=== PATIENT | male | born 1960 | race Two or more races ===

== ENCOUNTER 2018-04-15 06:20 | Day surgery (SDC) | payer OTHER ==
[2018-04-15] MEDS ORDERED: EPHEDrine SULFATE 50 MG/5 ML SYG (07:00)
[2018-04-15] MEDS ORDERED: CEFAZOLIN 2 GM/50 ML (PMX) 50 ML IVPB (08:00)
[2018-04-15] MEDS ORDERED: BUPIVACAINE 0.25% (MPF) 30 ML INJ (08:21)
[2018-04-15] MEDS ORDERED: CEFAZOLIN 1 GM INJ (08:41)
[2018-04-15] MEDS ORDERED: FENTAnyl 50 MCG/ML VIAL (08:41)
[2018-04-15] MEDS ORDERED: PROPOFOL 20 ML (08:41)
[2018-04-15] MEDS ORDERED: MIDAZOLAM 1 MG/ML 2 ML INJ (08:41)
[2018-04-15] MEDS ORDERED: ROPIVACAINE 0.5 % 30 ML VIAL (08:41)
[2018-04-15] MEDS ORDERED: ONDANSETRON 4 MG INJ (08:51)
[2018-04-15] MEDS ORDERED: METOCLOPRAMIDE 10 MG INJ (08:51)
[2018-04-15] MEDS ORDERED: KETOROLAC 30 MG INJ (08:52)
[2018-04-15] MEDS ORDERED: DEXAMETHASONE 4 MG/ML 1 ML INJ (08:52)
[2018-04-15] MEDS ORDERED: hydrALAzine 20 MG INJ IV (09:00)
[2018-04-15] MEDS ORDERED: LABETALOL HCL 20MG INJ IV (09:00)
[2018-04-15] MEDS ORDERED: DIPHENHYDRAMINE 50 MG INJ IV (09:00)
[2018-04-15] MEDS ORDERED: ONDANSETRON 4 MG INJ IV (09:00)
[2018-04-15] MEDS ORDERED: MEPERIDINE 25 MG INJ IV (09:00)
[2018-04-15] MEDS ORDERED: FENTAnyl 50 MCG/ML VIAL IV ×2 (09:00)
[2018-04-15] MEDS ORDERED: HYDROmorphONE 1 MG/5 ML IV SYRINGE IV ×2 (09:00)
[2018-04-15] MEDS ORDERED: METOCLOPRAMIDE 10 MG INJ IV (09:00)
[2018-04-15] MEDS ORDERED: OXYCODONE/ACETAMINOPHEN (5/325) TAB PO (09:00)
[2018-04-15] MEDS ORDERED: EPHEDrine SULFATE 50 MG/5 ML SYG IV (09:00)
[2018-04-15] MEDS ORDERED: NEOSTIGMINE 3 MG/3 ML SYRINGE (09:12)
[2018-04-15] MEDS ORDERED: GLYCOPYRROLATE 0.4 MG INJ (09:12)
[2018-04-15] MEDS: SOD CHLORIDE 0.9% 1,000 ML IV (09:30)
[2018-04-15] MEDS ORDERED: HYDROCODONE/APAP (5/325) TAB PO (09:30)
[2018-04-15] MEDS ORDERED: ROCURONIUM 50 MG INJ (10:23)
== END 2018-04-15 11:10 | disposition home or self-care (01) ==
LOC: SDS 06:20
DX: K40.30 Unilateral inguinal hernia, with obstruction, without gangrene, not specified as recurrent (principal); E11.9 Type 2 diabetes mellitus without complications; I10 Essential (primary) hypertension; I25.10 Atherosclerotic heart disease of native coronary artery without angina pectoris; E78.5 Hyperlipidemia, unspecified
CPT/HCPCS: 49507; 82962